=== PATIENT | female | born 1990 | race Caucasian/White ===

== ENCOUNTER 2016-11-11 12:28 | Emergency (ER) | payer MEDICAID ==
[~2016-11-11] VITALS: Wt 71.0 kg
[2016-11-11] MEDS ORDERED: SOD CHLORIDE 0.9% 1,000 ML IV STA (15:31)
[2016-11-11 15:57] LABS: URINE BLOOD (Dip) POC Negative (NEGATIVE)
[2016-11-11] MEDS ORDERED: METOCLOPRAMIDE 10 MG INJ IV ONE (16:00)
[2016-11-11 16:05] LABS: ADD SCAN DIFF NO
[2016-11-11 16:08] LABS: BASOPHILS % 0.2 % (0.0-2.0); EOSINOPHILS # 0.1 10^3/ul (0.0-0.5); EOSINOPHILS % 0.7 % (0.0-7.0); HEMATOCRIT 35.9 % (37.0-47.0); HEMOGLOBIN 12.2 g/dl (12.0-16.0); LYMPHOCYTES # 1.7 10^3/ul (0.8-2.9); LYMPHOCYTES % 17.4 % (15.0-51.0); MEAN CORPUSCULAR HEMOGLOBIN 30.3 pg (29.0-33.0); MEAN CORPUSCULAR VOLUME 89.3 fl (82.0-101.0); MEAN PLATELET VOLUME 10.8 fl (7.4-10.4); MONOCYTE # 0.4 10^3/ul (0.3-0.9); MONOCYTES % 3.5 % (0.0-11.0); NEUTROPHIL # 7.7 10^3/ul (1.6-7.5); NEUTROPHILS % 77.8 % (39.0-77.0); PLATELET COUNT 227 10^3/UL (140-415); RED BLOOD COUNT 4.02 10^6/ul (4.20-5.40); RED CELL DISTRIBUTION WIDTH 12.8 % (11.5-14.5); WHITE BLOOD COUNT 9.9 10^3/ul (4.8-10.8)
[2016-11-11 16:25] LABS: POTASSIUM 3.7 mmol/L (3.5-5.1)
[2016-11-11 16:27] LABS: ALBUMIN/GLOBULIN RATIO 1.25; BILIRUBIN,INDIRECT 0.1 mg/dl (0-1.1); BILIRUBIN,TOTAL 0.1 mg/dl (0.2-1.3); CREATININE 0.5 mg/dl (0.44-1.00); TOTAL PROTEIN 7.2 g/dl (6.1-8.1)
--- NOTE | 2016-11-11 16:27 | RADRPT ---
PROCEDURE: US OB. CLINICAL INDICATION: Size and dates , dizziness TECHNIQUE: Multiple sonographic images of the pelvis and gravid uterus were obtained. The images were reviewed on a PACS workstation. COMPARISON: No prior studies are available for comparison. FINDINGS: There is a single viable intrauterine gestation. Cardiac activity is present with 158 beats per min momo. There is a breech presentation. The placenta is posterior. There is no evidence for an abruption or placenta previa. There is a normal amount of amniotic fluid with a MVP = 4.2 cm. Measurements were made in order to determine age. The results are as follows: BPD =2.8 cm HC =9.8 cm AC =8.8 cm FL =1.8 cm Estimated gestational age of approximately 15 weeks and 0 days based on ultrasound measurements. Clinical age: 10 weeks and 3 days. The estimated date of delivery is 05/05/17, based on ultrasound measurements. The EFW = 115 g, >97%, based on LMP age. RPTAT: AA IMPRESSION: Single viable intrauterine gestation of approximately 15 weeks and 0 days based on ultrasound measu rements. .Vik Moran MD, MD Date Time Electronically viewed and signed by .Vik Moran MD, on 11/11/2016 16:27 .S/
[2016-11-11 16:28] LABS: CALCIUM 8.9 mg/dl (8.4-10.2)
--- NOTE | 2016-11-11 16:39 | ERD ---
ER Documentation Chief Complaint Date/Time DATE: 11/11/16 TIME: 16:34 Chief Complaint DIZZINESS SINCE THIS MORNING. NO TRAUMA. NO VAB BLEED OR AP. 14 WKS PREG HPI Patient is a 26-year-old female G1, P0 who presents to the emergency department with "feeling dizzy and faint" since this morning. Patient states that her symptoms started while she was at work standing up. Patient is a dental automobile mechanic assistant. Patient denies any room spinning sensation, however she feels like she was "going to pass out" earlier today. Patient states that she was diaphoretic for a "few seconds." Patient denies any vomiting however she does report some nausea. Patient denies any fever, chills, abdominal pain, pain with urination, vaginal bleeding or excessive vaginal discharge. Patient denies any chest pain or shortness of breath. Patient denies any falls or syncope. Patient denies any loss of consciousness. Patient states that she is taking vitamins. Patient states she has seen an POLICE COMMANDING OFFICER and reports thus far a normal . ROS All systems reviewed and are negative except as per history of present illness. Medications Home Meds Active Scripts Metoclopramide* (Reglan*) 10 Mg Tablet, 10 MG PO Q6 Y for NAUSEA AND/OR VOMITING , #10 TAB Prov:OSVALDO DUEÑAS PA-C 11/11/16 Allergies Allergies: Coded Allergies: No Known Allergy (Unverified , 11/11/16) PMhx/Soc Medical and Surgical Hx: pt denies Medical Hx, pt denies Surgical Hx Physical Exam Vitals Vital Signs Date Time Temp Pulse Resp B/P Pulse Ox O2 Delivery O2 Flow Rate FiO2 11/11/16 17:00 98.3 78 20 94/58 98 Room Air 11/11/16 12:32 97.9 87 19 132/67 99 Physical Exam GENERAL: Well-developed, well-nourished female. Appears in no acute distress. Speaking in full sentences. HEAD: Normocephalic, atraumatic. No deformities or ecchymosis. EYE: Pupils equal, round, and reactive to light. EOMs intact. No conjunctival erythema. No eye discharge. ENT: External ear without any masses or tenderness. Auditory canals clear bilaterally. TM visualized bilaterally, non-erythematous, non-bulging. Nasal mucosa pink with no discharge. Oropharynx is pink without any tonsillar erythema or exudates. No uvula deviation. No kissing tonsils. NECK: Supple. No meningismus. Normal ROM of the neck. LUNG: Clear to auscultation bilaterally. No rhonchi, wheezing, rales or coarse breath sounds. HEART: Regular rate and rhythm. No murmurs, rubs or gallops. BACK: No midline tenderness. EXTREMITIES: Equal pulses bilaterally. No peripheral clubbing, cyanosis or edema. No unilateral leg swelling. NEUROLOGIC: Alert and oriented x3, cooperative. Mood and affect appropriate to situation. Cranial nerves II through XII are grossly intact. Normal speech. Motor exam: 5/5 strength in upper and lower extremities. Sensory exam: Sensation intact to light touch on all four extremities. Steady gait. No pronator drift. SKIN: Normal color. Warm and dry. No rashes or lesions. Non-diaphoretic. Result Diagram: 11/11/16 1547 11/11/16 1547 Results 24 hrs Laboratory Tests Test 11/11/16 15:47 11/11/16 15:55 Alanine Aminotransferase (ALT/SGPT) 38IU/L Albumin 4.0g/dl Albumin/Globulin Ratio 1.25 Alkaline Phosphatase 66IU/L Anion Gap 17 Aspartate Amino Transf (AST/SGOT) 30IU/L Basophils # 0.010^3/ul Basophils % 0.2% Blood Urea Nitrogen 6mg/dl Calcium Level 8.9mg/dl Carbon Dioxide Level 24mmol/L Chloride Level 103mmol/L Creatinine 0.50mg/dl Direct Bilirubin 0.00mg/dl Eosinophils # 0.110^3/ul Eosinophils % 0.7% Globulin 3.20g/dl Glucose Level 88mg/dl Hematocrit 35.9% Hemoglobin 12.2g/dl Indirect Bilirubin 0.1mg/dl Lipase 35U/L Lymphocytes # 1.710^3/ul Lymphocytes % 17.4% Mean Corpuscular Hemoglobin 30.3pg Mean Corpuscular Hemoglobin Concent 34.0g/dl Mean Corpuscular Volume 89.3fl Mean Platelet Volume 10.8fl Monocytes # 0.410^3/ul Monocytes % 3.5% Neutrophils # 7.710^3/ul Neutrophils % 77.8% Nucleated Red Blood Cells # 0.010^3/ul Nucleated Red Blood Cells % 0.0/100WBC Platelet Count 83692^3/UL Potassium Level 3.7mmol/L Red Blood Count 4.0210^6/ul Red Cell Distribution Width 12.8% Sodium Level 140mmol/L Total Bilirubin 0.1mg/dl Total Protein 7.2g/dl White Blood Count 9.910^3/ul Bedside Urine Blood Negative Bedside Urine Glucose (UA) Negative Bedside Urine Ketones (LAB) Negative Bedside Urine Leukocyte Esterase (L Negative Bedside Urine Nitrite (LAB) Negative Bedside Urine Protein (LAB) Negative Bedside Urine pH (LAB) 5.5 Current Medications Medications (Trade) Dose Ordered Sig/Mattie Route PRN Reason Start Time Stop Time Status Last Admin Dose Admin Sodium Chloride (NS) 1,000 ml @ 1,000 mls/hr Q1H STAT IV 11/11/16 15:31 11/11/16 16:30 DC 11/11/16 15:57 Metoclopramide HCl (Reglan) 10 mg ONCE ONCE IV 11/11/16 16:00 11/11/16 16:01 DC 11/11/16 15:57 Procedures/MDM ED COURSE: The patient was stable throughout ED course. I kept the patient and/or family informed of laboratory and diagnostic imaging results throughout the ED course. EKG: Read by Dr. Gonzalez, attending physician. EKG shows normal sinus rhythm at a rate of 73 bpm. No arrhythmias, acute ST elevations or T wave changes were noted. DIAGNOSTIC IMAGING: Read by radiologist. DIAGNOSTIC IMAGING REPORT Patient: JASSI CROSS : 1990 Age: 26 Sex: F MR #: [id number] DOS: 11/11/16 1534 Ordering MD: OSVALDO DUEÑAS PA-C Location: E Room/Bed: PROCEDURE: US OB. CLINICAL INDICATION: Size and dates , dizziness TECHNIQUE: Multiple sonographic images of the pelvis and gravid uterus were obtained. The images were reviewed on a PACS workstation. COMPARISON: No prior studies are available for comparison. FINDINGS: There is a single viable intrauterine gestation. Cardiac activity is present with 158 beats per minute. There is a breech presentation. The placenta is posterior. There is no evidence for an abruption or placenta previa. There is a normal amount of amniotic fluid with a MVP = 4.2 cm. Measurements were made in order to determine age. The results are as follows: BPD = 2.8 cm HC = 9.8 cm AC = 8.8 cm FL = 1.8 cm Estimated gestational age of approximately 15 weeks and 0 days based on ultrasound measurements. Clinical age: 10 weeks and 3 days. The estimated date of delivery is 05/05/17, based on ultrasound measurements. The EFW = 115 g, >97%, based on LMP age. RPTAT: AA IMPRESSION: Single viable intrauterine gestation of approximately 15 weeks and 0 days based on ultrasound measurements. .Vik Moran MD, MD Date Time Electronically viewed and signed by .Vik Moran MD, MD on 11/11/2016 16: 27 .S/ PROCEDURES: None. MEDICATIONS GIVEN: IV fluids, Reglan Patient tolerated medication well with no adverse reactions. Patient reported improvement in symptoms. MEDICAL DECISION MAKING: Patient is a 26-year-old female, , approximately 14 weeks , who presents emergency department with feeling dizzy and faint. Patient denies any chest pain, shortness of breath or LOC. Vital signs were reviewed. Patient is afebrile. Patient was not hypoxic. Patient was hemodynamically stable. CBC showed no evidence of systemic infection or severe anemia. CMP showed no evidence of electrolyte abnormalities, severe acidosis, alkalosis, renal failure , or liver disease. Lipase showed no evidence of acute pancreatitis. UA showed no evidence of acute infection or hematuria. EKG was within normal limits. Pelvic US showed Single viable intrauterine gestation of approximately 15 weeks and 0 days based on ultrasound measurements. Upon reexamination, patient reported improvement in symptoms after receiving IV fluids and Reglan. At this time, patient's presentation is most consistent with feeling faint and weakness. Patient's symptoms may be associated with changes. Low suspicion for systemic infection. Low suspicion for UTI or pyelonephritis. Low suspicion for CVA or TIA given that patient was speaking in full sentences, had no slurred speech, no arm weakness or unilateral weakness. Low suspicion for severe dehydration or electrolyte imbalances. Low suspicion for anemia given normal Hgb and HCT. Low suspicion for ACS, arrhythmia or pericarditis. Low suspicion for PE given that patient denied any chest pain, shortness of breath, was not tachycardic or hypoxia. Low suspicion for demise or spontaneous . PRESCRIPTIONS: Reglan DISCHARGE: At this time, patient is stable for discharge and outpatient management. I have instructed the patient to follow-up with his/her primary care physician/OBGYN in 1-2 days. I have discussed with the patient the possibility of needing to see a specialist for further workup and imaging studies if symptoms persist. I have instructed the patient to promptly return to the ER for any new or worsening symptoms including increased pain, fever, nausea, vomiting, weakness or LOC. The patient and/or family expressed understanding of and agreement with this plan. All questions were answered. Home care instructions were provided. Departure Diagnosis: Primary Impression: Weeks of gestation: unspecified Qualified Code: Z33.1 - , unspecified gestational age Additional Impression: Feeling faint Condition: Stable Patient Instructions: Dizziness, Unk Cause Referrals: [facility] YOU HAVE RECEIVED A MEDICAL SCREENING EXAM AND THE RESULTS INDICATE THAT YOU DO NOT HAVE A CONDITION THAT REQUIRES URGENT TREATMENT IN THE EMERGENCY DEPARTMENT. FURTHER EVALUATION AND TREATMENT OF YOUR CONDITION CAN WAIT UNTIL YOU ARE SEEN IN YOUR DOCTORS OFFICE WITHIN THE NEXT 1-2 DAYS. IT IS YOUR RESPONSIBILITY TO MAKE AN APPOINTMENT FOR FOLOW-UP CARE. IF YOU HAVE A PRIMARY DOCTOR --you should call your primary doctor and schedule an appointment IF YOU DO NOT HAVE A PRIMARY DOCTOR YOU CAN CALL OUR PHYSICIAN REFERRAL HOTLINE AT IF YOU CAN NOT AFFORD TO SEE A PHYSICIAN YOU CAN CHOSE FROM THE FOLLOWING [facility] [address] [facility] [address] [facility] [facility] [address] [facility] [address] [facility] [address]. [facility]. [address] [facility]. [facility] YOU HAVE RECEIVED A MEDICAL SCREENING EXAM AND THE RESULTS INDICATE THAT YOU DO NOT HAVE A CONDITION THAT REQUIRES URGENT TREATMENT IN THE EMERGENCY DEPARTMENT. FURTHER EVALUATION AND TREATMENT OF YOUR CONDITION CAN WAIT UNTIL YOU ARE SEEN IN YOUR DOCTORS OFFICE WITHIN THE NEXT 1-2 DAYS. IT IS YOUR RESPONSIBILITY TO MAKE AN APPOINTMENT FOR FOLOW-UP CARE. IF YOU HAVE A PRIMARY DOCTOR --you should call your primary doctor and schedule and appointment IF YOU DO NOT HAVE A PRIMARY DOCTOR YOU CAN CALL OUR PHYSICIAN REFERRAL HOTLINE AT . IF YOU CAN NOT AFFORD TO SEE A PHYSICIAN YOU CAN CHOSE FROM THE FOLLOWING [facility] INSTITUTIONS: [facility] [address] [place] [address] [facility] [address] [place] [address] [facility] [address] [place] [address] Additional Instructions: Call your primary care doctor/OBGYN TOMORROW for an appointment during the next 1-2 days.See the doctor sooner or return here if your condition worsens before your appointment time. OSVALDO DUEÑAS PA-C Nov 11, 2016 16:39
[2016-11-11] MEDS ORDERED: METO10TA92 PO (16:54)
[2016-11-11 17:00] VITALS: BP 94/58; PULSE 78; RESP 20; TEMP 98.3
== END 2016-11-11 17:07 | disposition home or self-care (01) ==
LOC: FTE 12:28
DX: O99.89 Other specified diseases and conditions complicating pregnancy, childbirth and the puerperium (principal); R42 Dizziness and giddiness; Z3A.15 15 weeks gestation of pregnancy
CPT/HCPCS: 36415; 76805; 80053; 81003; 83690; 85025; 93005; 96374; J2765; J7030; Z7502

== ENCOUNTER 2017-05-06 17:04 | Inpatient (IN) | payer OTHER ==
[~2017-05-06] VITALS: Ht 167.6 cm; Wt 87.3 kg
[~2017-05-06 17:04] MED LIST: METO10TA92 PO
[2017-05-06 17:39] VITALS: Ht 167.6 cm; Wt 87.3 kg
[2017-05-06 17:40] VITALS: BP 110/74; PULSE 96; RESP 18
[2017-05-06] MEDS ORDERED: IBUPROFEN 600 MG TAB PO PRN (18:00)
[2017-05-06] MEDS ORDERED: LACTATED RINGER'S 1,000 ML IV PRN (18:00)
[2017-05-06] MEDS ORDERED: LIDOCAINE 1% (MPF) 30 ML INJ INJ PRN (18:00)
[2017-05-06] MEDS ORDERED: CARBOPROST 250 MCG INJ IM PRN (18:00)
[2017-05-06] MEDS ORDERED: OXYTOCIN 30 UNITS/LR 500 ML IV SCH ×2 (18:00)
[2017-05-06] MEDS ORDERED: MISOPROSTOL 200 MCG TAB PR PRN (18:00)
[2017-05-06] MEDS ORDERED: METHYLERGONOVINE 0.2 MG INJ IM PRN (18:00)
[2017-05-06] MEDS ORDERED: OXYTOCIN 30 UNITS/LR 500 ML IV PRN (18:00)
[2017-05-06 18:01] LABS: BASOPHILS % 0.2 % (0.0-2.0); EOSINOPHILS # 0.1 10^3/ul (0.0-0.5); HEMATOCRIT 35.6 % (37.0-47.0); HEMOGLOBIN 11.9 g/dl (12.0-16.0); LYMPHOCYTES # 1.7 10^3/ul (0.8-2.9); MEAN CORPUSCULAR HEMOGLOBIN 29.7 pg (29.0-33.0); MEAN CORPUSCULAR HGB CONC 33.4 g/dl (32.0-37.0); MEAN CORPUSCULAR VOLUME 88.8 fl (82.0-101.0); MEAN PLATELET VOLUME 11.1 fl (7.4-10.4); MONOCYTE # 0.4 10^3/ul (0.3-0.9); MONOCYTES % 4.2 % (0.0-11.0); NEUTROPHILS % 75.2 % (39.0-77.0); PLATELET COUNT 249 10^3/UL (140-415); RED BLOOD COUNT 4.01 10^6/ul (4.20-5.40); RED CELL DISTRIBUTION WIDTH 13.1 % (11.5-14.5)
[2017-05-06] MEDS: LACTATED RINGER'S 1,000 ML IV SCH (18:03)
[2017-05-06 18:18] LABS: INR 0.81; PROTIME 11.2 Sec (12.2-14.2); PT RATIO 0.9
[2017-05-06 18:19] LABS: PARTIAL THROMBOPLASTIN TIME 24.1 Sec (25.0-35.0)
--- NOTE | 2017-05-06 19:23 | RADRPT ---
PROCEDURE: US OB. CLINICAL INDICATION: Pain. TECHNIQUE: Multiple sonographic images of the pelvis were obtained. Transabdominal imaging only w as performed. The images were reviewed on a PACS workstation. COMPARISON: 11/11/2016. FINDINGS: Single live intrauterine is identified. Cardiac activity is present with 150 beats per mi nute. There is a vertex presentation. Measurements: BPD = 39 weeks 3 days HC = 39 weeks 3 days. AC = 39 weeks 3 days. FL = 39 weeks 3 days. Estimated gestational age of approximately 39 weeks 3 days. The EFW = 3776 g which is at the 72nd percentile. The placenta is posterior. IMPRESSION: Single live intrauterine gestation of approximately 39 weeks 3 days. RPTAT: HMVK .Jorge Jennings MD, MD Date Time Electronically viewed and signed by .Jorge Jennings MD, MD on 05/06/2017 19:23 .K/
[2017-05-06] MEDS: OXYTOCIN 30 UNITS/LR 500 ML IV SCH (21:43)
[2017-05-07] MEDS: LACTATED RINGER'S 1,000 ML IV SCH ×3 (00:47→17:09)
[2017-05-07] MEDS ORDERED: FENTAnyl 2MCG/ML-ROPIV 0.2% 100 ML ONE (08:29)
[2017-05-07] MEDS ORDERED: FENTAnyl 2MCG/ML-ROPIV 0.2% 100 ML BAG EPI SCH (09:00)
[2017-05-07] MEDS ORDERED: HYDROmorphONE 1 MG/ML SYG IV PRN ×2 (09:00)
[2017-05-07] MEDS ORDERED: ONDANSETRON 4 MG INJ IV PRN (09:00)
[2017-05-07] MEDS ORDERED: DIPHENHYDRAMINE 50 MG INJ IV PRN (09:00)
[2017-05-07] MEDS ORDERED: NALOXONE (0.4 MG/ML) INJ IV PRN (09:00)
[2017-05-07] MEDS ORDERED: KETOROLAC 30 MG INJ IV PRN (09:00)
[2017-05-07] MEDS ORDERED: AMPICILLIN 2 GM/NS (PMX) 100 ML IV ONE (18:00)
[2017-05-07 19:55] LABS: CANNABINOIDS Negative (NEGATIVE)
[2017-05-07 20:03] LABS: BARBITURATES Negative (NEGATIVE); BENZODIAZEPINES Negative (NEGATIVE); COCAINE Negative (NEGATIVE); OPIATES Negative (NEGATIVE)
[2017-05-07] MEDS: OXYTOCIN 30 UNITS/LR 500 ML IV SCH (20:08)
[2017-05-07] MEDS ORDERED: AMPICILLIN 1 GM/NS (PMX) 50 ML IV SCH (22:00)
[2017-05-08] VITALS (7 sets, daily range): BP systolic 103–110; BP diastolic 57–70; PULSE 78–94; RESP 16–20
--- NOTE | 2017-05-08 01:27 | HP ---
Date/Time of Note Date/Time of Note DATE: 05/08/17 TIME: 01:26 OB - History Hx of Present Free Text/Dictation 39+ : 1 Para: 0 Care: Good Care Ultrasounds: No ultrasounds Obstetrical Complications: None Medical Complications: None Past Family/Social History * Past Medical, Surgical, Family and Obstetric Histories reviewed from chart. OB Admission Exam Vital Signs Vital Signs Vital Signs Date Time Temp Pulse Resp B/P Pulse Ox O2 Delivery O2 Flow Rate FiO2 05/06/17 17:40 97.6 96 18 110/74 Room Air Physical Exam Abdomen: WNL Cervical Dilatation: 2cm Effacement: 75% Station: -1 Membranes: Intact Heart Rate: 140's Accelerations: Accelerations Present Decelerations: No Decelerations Varibility: Moderate Contractions on Admission: 6-10 Minutes Apart Last 72 hours Lab Results CBC & BMP 05/06/17 17:25 OB Assessment/Plan Reason for admission: observation Plan: Expectant Management Induction Method: per Pitocin Protocol PAOLA MENEZES M.D. May 08, 2017 01:27
--- NOTE | 2017-05-08 01:28 | LDN ---
Date/Time of Note Date/Time of Note DATE: 05/08/17 TIME: 01:27 Delivery Summary Weeks of Gestation 39 Placenta Delivered: Spontaneously Meconium: none Episiotomy: No Anesthesia type: Epidural Estimated blood loss: 200 Sponge & Needle done & correct: Yes All needle counts correct: Yes Any foreign bodies felt in the: No Problems: Delivery Information Apgars 1 Minute: 8 5 Minute: 9 Suctioning Nose & mouth suctioned at kike: Yes Delee suction performed: Yes Umbilical Cord Umbilical cord with: 3 Vessels Cord presentations: no nuchal cord Mother & Baby Disposition Disposition Mom & Baby to Maternity; Good: Yes Baby to NICU: No PAOLA MENEZES M.D. May 08, 2017 01:28
[2017-05-08] MEDS ORDERED: WITCH HAZEL/GLYCERIN PAD PR PRN (05:00)
[2017-05-08] MEDS ORDERED: OXYCODONE/ASPIRIN (4.88/325) TAB PO PRN (05:00)
[2017-05-08] MEDS ORDERED: CARBOPROST 250 MCG INJ IM PRN (05:00)
[2017-05-08] MEDS ORDERED: METHYLERGONOVINE 0.2 MG INJ IM PRN (05:00)
[2017-05-08] MEDS ORDERED: MISOPROSTOL 200 MCG TAB PR PRN (05:00)
[2017-05-08] MEDS ORDERED: ZOLPIDEM 5 MG TAB PO PRN (05:00)
[2017-05-08] MEDS ORDERED: SENNA/DOCUSATE NA (8.6MG/50MG) TAB PO PRN (05:00)
[2017-05-08] MEDS ORDERED: OXYTOCIN 30 UNITS/LR 500 ML IV PRN (05:00)
[2017-05-08] MEDS: LACTATED RINGER'S 1,000 ML IV* SCH ×2 (06:41→12:51)
[2017-05-08] MEDS: SENNA/DOCUSATE NA (8.6MG/50MG) TAB PO SCH ×2 (08:53→22:11)
[2017-05-08 09:13] LABS: BASOPHILS % 0.1 % (0.0-2.0); EOSINOPHILS % 0.1 % (0.0-7.0); HEMATOCRIT 33.5 % (37.0-47.0); HEMOGLOBIN 11.1 g/dl (12.0-16.0); LYMPHOCYTES # 1.5 10^3/ul (0.8-2.9); LYMPHOCYTES % 8.2 % (15.0-51.0); MEAN CORPUSCULAR HEMOGLOBIN 29.1 pg (29.0-33.0); MEAN CORPUSCULAR HGB CONC 33.1 g/dl (32.0-37.0); MEAN CORPUSCULAR VOLUME 87.9 fl (82.0-101.0); MEAN PLATELET VOLUME 11.1 fl (7.4-10.4); MONOCYTE # 0.8 10^3/ul (0.3-0.9); MONOCYTES % 4.6 % (0.0-11.0); NEUTROPHILS % 86.6 % (39.0-77.0); PLATELET COUNT 219 10^3/UL (140-415); RED BLOOD COUNT 3.81 10^6/ul (4.20-5.40); RED CELL DISTRIBUTION WIDTH 13.2 % (11.5-14.5); WHITE BLOOD COUNT 18.3 10^3/ul (4.8-10.8)
[2017-05-08] MEDS ORDERED: LANOLIN 7 GM TUBE TOP PRN (13:00)
[2017-05-08] MEDS: IBUPROFEN 600 MG TAB PO SCH ×3 (13:15→23:56)
[2017-05-09 04:21] VITALS: BP 99/54; PULSE 77; RESP 20
[2017-05-09] MEDS: IBUPROFEN 600 MG TAB PO SCH ×3 (05:26→17:24)
[2017-05-09 08:00] VITALS: BP 100/66; PULSE 78; RESP 18
[2017-05-09] MEDS: SENNA/DOCUSATE NA (8.6MG/50MG) TAB PO SCH ×2 (09:13→21:34)
--- NOTE | 2017-05-09 11:23 | QN ---
Documentation Comment Late Note 05/09/17 PPD# 1 i stable afebrile tolerates diet No VB +BM +voids VS stable Gen NAD Abd soft NT ND Genitalia No blood at perinium ---->Discharge Home Tomorrow ---->ambulation PAOLA MENEZES M.D. May 09, 2017 11:23
--- NOTE | 2017-05-09 11:24 | DS ---
Date/Time of Note Date/Time of Note DATE: 05/09/17 TIME: 11:23 Discharge Summary Admission/Discharge Info Admit Date/Time May 06, 2017 at 17:04 Discharge Date/Time may Discharge Diagnosis postpaartum Patient Condition: Good Procedures vaginal delivery Hospital Course uneventful Home Meds Active Scripts Metoclopramide* (Reglan*) 10 Mg Tablet, 10 MG PO Q6 Y for NAUSEA AND/OR VOMITING , #10 TAB Prov:OSVALDO DUEÑAS PA-C 11/11/16 Primary Care Provider Care Physician PAOLA Linda M.D. May 09, 2017 11:24
[2017-05-09 16:00] VITALS: BP 107/68; PULSE 69; RESP 16
[2017-05-09 20:00] VITALS: BP 115/76; PULSE 83; RESP 20
[2017-05-10] MEDS: IBUPROFEN 600 MG TAB PO SCH ×3 (00:11→11:24)
[2017-05-10 04:00] VITALS: BP 128/62; PULSE 74; RESP 18
[2017-05-10 08:00] VITALS: BP 117/67; PULSE 68; RESP 20
[2017-05-10] MEDS ORDERED: DIPHTH/TET/ACEL PERTUSS (ADULT) 0.5 ML VIAL IM* ONE (09:00)
[2017-05-10] MEDS: SENNA/DOCUSATE NA (8.6MG/50MG) TAB PO SCH (09:03)
== END 2017-05-10 15:13 | disposition home or self-care (01) | DRG 775 ==
LOC: L-D 17:04 → PP1 05-08 03:26
PROVIDERS: ADMIT Obstetrics & Gynecology; ATTEND Obstetrics & Gynecology
PROC: 10E0XZZ Delivery of Products of Conception, External Approach (ICD-10-PCS; principal; 2017-05-08)
PROC: 3E033VJ Introduction of Other Hormone into Peripheral Vein, Percutaneous Approach (ICD-10-PCS; 2017-05-08)
DX: O80 Encounter for full-term uncomplicated delivery (principal); Z37.0 Single live birth; Z3A.39 39 weeks gestation of pregnancy
CPT/HCPCS: 62319; 76815; 80307; 85025; 85610; 85730; 86592; 86900; 86901; 90715; J0290; J2405; J2590; J3010; J7120

== ENCOUNTER 2017-05-19 17:10 | Emergency (ER) | payer OTHER ==
[~2017-05-19] VITALS: Wt 79.5 kg
--- NOTE | 2017-05-19 17:48 | ERD ---
ER Documentation Chief Complaint Date/Time DATE: 05/19/17 TIME: 17:48 Chief Complaint DELMA BREAST PAIN/ITCHY, HPI 26-year-old female previously healthy presenting with itching around bilateral breasts after she breast-feeds. She denies any associated rash or pain. Otherwise when not breast-feeding, she does not have any pruritus. She denies any other symptoms. ROS All systems reviewed and are negative except as per history of present illness. Medications Home Meds No Active Prescriptions or Reported Meds Allergies Allergies: Coded Allergies: No Known Allergy (Unverified , 11/11/16) PMhx/Soc Medical and Surgical Hx: pt denies Medical Hx, pt denies Surgical Hx Hx Alcohol Use: No Hx Substance Use: No Smoking Status: Never smoker FmHx Family History: No diabetes Physical Exam Vitals Vital Signs Date Time Temp Pulse Resp B/P Pulse Ox O2 Delivery O2 Flow Rate FiO2 05/19/17 17:17 99.1 69 18 150/78 99 Physical Exam Const: Well-appearing, no apparent distress Head: Atraumatic Eyes: Normal Conjunctiva ENT: Normal External Ears, Nose and Mouth. Neck: Full range of motion..~ No meningismus. Resp: Clear to auscultation bilaterally Breast exam: deferred by patient Cardio: Regular rate and rhythm, no murmurs Abd: Soft, non tender, non distended. Normal bowel sounds Skin: No petechiae or rashes Procedures/MDM Patient is presenting with some intermittent pruritus around both her breasts associated with breast-feeding. Currently she is asymptomatic without any associated rash or pain. She is hemodynamically stable. Her baby does not have any evidence of thrush. I believe the patient does not need treatment at this time. Breast care was discussed. Return precautions were also given. Departure Diagnosis: Primary Impression: Pruritus Additional Impression: support offered Condition: Stable LEEANNE LITTLEJOHN MD May 19, 2017 17:48
== END 2017-05-19 17:55 | disposition home or self-care (01) ==
LOC: E/R 17:10
DX: L29.9 Pruritus, unspecified (principal)
CPT/HCPCS: 99282

== ENCOUNTER 2018-07-27 05:49 | Emergency (ER) | END 2018-07-27 07:59 | disposition home or self-care (01) ==

== ENCOUNTER 2018-08-16 23:31 | Emergency (ER) | END 2018-08-17 03:12 | disposition home or self-care (01) ==

== ENCOUNTER 2018-12-21 01:47 | Emergency (ER) | payer OTHER ==
[~2018-12-21] VITALS: Ht 165.1 cm; Wt 69.2 kg
[~2018-12-21 01:47] MED LIST changes: +ACET500C5 PO; +FAMO-96 PO; -METO10TA92 PO; +ONDA4TAB14 PO
[2018-12-21 01:51] VITALS: Ht 165.1 cm; Wt 69.2 kg
[2018-12-21] MEDS ORDERED: KETOROLAC 30 MG INJ IM STA (03:05)
[2018-12-21] MEDS ORDERED: LIDOCAINE/MYLANTA 40 ML BTL PO ONE (03:30)
[2018-12-21] MEDS ORDERED: ONDA4TAB14 PO (04:53)
[2018-12-21] MEDS ORDERED: ACET-141 PO (04:53)
[2018-12-21] MEDS ORDERED: IBUP-1561 PO (04:53)
--- NOTE | 2018-12-21 04:55 | ERD ---
ER Documentation Chief Complaint Chief Complaint abdominal pain x 3 hours. hx of gallstones ROS All systems reviewed and are negative except as per history of present illness. Medications Home Meds Active Scripts Ondansetron (Ondansetron Odt) 4 Mg Tab.rapdis, 4 MG PO Q6H PRN for NAUSEA AND/OR VOMITING, #15 TAB Prov:FANNIE HUBBARD DO 12/21/18 Acetaminophen* (Acetaminophen*) 500 MG Extra Strength Tablet, 500 MG PO Q4H PRN for PAIN AND OR ELEVATED TEMP, #30 TAB Prov:FANNIE HUBBARD DO 12/21/18 Ibuprofen* (Motrin*) 400 Mg Tab, 400 MG PO Q6H PRN for PAIN AND OR ELEVATED TEMP, #30 TAB Prov:FANNIE HUBBARD DO 12/21/18 Acetaminophen* (Tylophen*) 500 Mg Capsule, 1 CAP PO Q6H PRN for PAIN AND OR ELEVATED TEMP, #20 CAP Prov:PITA PLATA PA-C 08/17/18 Ondansetron (Ondansetron Odt) 4 Mg Tab.rapdis, 4 MG PO Q6H PRN for NAUSEA AND/OR VOMITING, #10 TAB Prov:PITA PLATA PA-C 08/17/18 Famotidine* (Pepcid*) 20 Mg Tablet, 20 MG PO BID for 4 Days, TAB Prov:RACHEL STAPLETON PA-C 07/27/18 Ondansetron (Ondansetron Odt) 4 Mg Tab.rapdis, 4 MG PO Q6H PRN for NAUSEA AND/OR VOMITING, #10 TAB Prov:RACHEL STAPLETON PA-C 07/27/18 Allergies Allergies: Coded Allergies: No Known Allergy (Unverified , 07/27/18) PMhx/Soc Hx Miscellaneous Medical Probl: Yes (gallstones) Hx Alcohol Use: No Hx Substance Use: No Hx Tobacco Use: No Smoking Status: Never smoker Physical Exam Vitals Vital Signs Date Temp Pulse Resp B/P (MAP) Pulse Ox O2 O2 Flow FiO2 Time Delivery Rate 12/21/18 97.4 70 18 129/74 99 01:51 (92) Physical Exam Const: No acute distress Head: Atraumatic Eyes: Normal Conjunctiva ENT: Normal External Ears, Nose and Mouth. Neck: Full range of motion. No meningismus. Resp: Clear to auscultation bilaterally Cardio: Regular rate and rhythm, no murmurs Abd: Soft, non tender, non distended. Normal bowel sounds Skin: No petechiae or rashes Back: No midline or flank tenderness Ext: No cyanosis, or edema Neur: Awake and alert Psych: Normal Mood and Affect Result Diagram: 12/21/18 0323 12/21/18 0323 Results 24 hrs Laboratory Tests Test 12/21/18 03:21 12/21/18 03:23 POC Beta HCG, Qualitative NEGATIVE White Blood Count 8.4 10^3/ul Red Blood Count 4.05 10^6/ul Hemoglobin 11.8 g/dl Hematocrit 36.0 % Mean Corpuscular Volume 88.9 fl Mean Corpuscular Hemoglobin 29.1 pg Mean Corpuscular Hemoglobin Concent 32.8 g/dl Red Cell Distribution Width 12.0 % Platelet Count 217 10^3/UL Mean Platelet Volume 11.6 fl Immature Granulocytes % 0.400 % Neutrophils % 73.8 % Lymphocytes % 19.9 % Monocytes % 4.2 % Eosinophils % 1.2 % Basophils % 0.5 % Nucleated Red Blood Cells % 0.0 /100WBC Immature Granulocytes # 0.030 10^3/ul Neutrophils # 6.2 10^3/ul Lymphocytes # 1.7 10^3/ul Monocytes # 0.4 10^3/ul Eosinophils # 0.1 10^3/ul Basophils # 0.0 10^3/ul Nucleated Red Blood Cells # 0.0 10^3/ul Urine Color YELLOW Urine Clarity SLIGHTLY CLOUDY Urine pH 5.0 Urine Specific Helper 1.029 Urine Ketones 1+ mg/dL Urine Nitrite NEGATIVE mg/dL Urine Bilirubin NEGATIVE mg/dL Urine Urobilinogen 1+ mg/dL Urine Leukocyte Esterase NEGATIVE Abeba/ul Urine Microscopic RBC 0 /HPF Urine Microscopic WBC 2 /HPF Urine Squamous Epithelial Cells FEW /HPF Urine Mucus MANY /HPF Urine Hemoglobin 1+ mg/dL Urine Glucose NEGATIVE mg/dL Urine Total Protein NEGATIVE mg/dl Sodium Level 143 mmol/L Potassium Level 3.4 mmol/L Chloride Level 107 mmol/L Carbon Dioxide Level 27 mmol/L Anion Gap 9 Blood Urea Nitrogen 12 mg/dl Creatinine 0.64 mg/dl Est Glomerular Filtrat Rate mL/min > 60 mL/min Glucose Level 100 mg/dl Calcium Level 9.3 mg/dl Total Bilirubin 0.3 mg/dl Direct Bilirubin 0.00 mg/dl Indirect Bilirubin 0.3 mg/dl Aspartate Amino Transf (AST/SGOT) 14 IU/L Alanine Aminotransferase (ALT/SGPT) 11 IU/L Alkaline Phosphatase 49 IU/L Total Protein 7.5 g/dl Albumin 4.4 g/dl Globulin 3.10 g/dl Albumin/Globulin Ratio 1.41 Lipase 36 U/L Current Medications Medications Dose Sig/Mattie Start Time Status Last (Trade) Ordered Route PRN Stop Time Admin Dose Reason Admin Ketorolac 30 mg ONCE STAT 12/21/18 DC 12/21/18 Tromethamine IM 03:05 03:24 (Toradol) 12/21/18 03:07 40 ml ONCE ONCE 12/21/18 DC 12/21/18 Miscellaneous PO 03:30 03:16 Medication 12/21/18 03:31 (Gi Cocktail (2)) Departure Diagnosis: Primary Impression: Abdominal pain Abdominal location: epigastric Qualified Codes: R10.13 - Epigastric pain Additional Impression: Biliary colic Condition: Fair Patient Instructions: Abdominal Pain, Biliary Colic With Gallstone (Confirmed) Referrals: [facility] YOU HAVE RECEIVED A MEDICAL SCREENING EXAM AND THE RESULTS INDICATE THAT YOU DO NOT HAVE A CONDITION THAT REQUIRES URGENT TREATMENT IN THE EMERGENCY DEPARTMENT. FURTHER EVALUATION AND TREATMENT OF YOUR CONDITION CAN WAIT UNTIL YOU ARE SEEN IN YOUR DOCTORS OFFICE WITHIN THE NEXT 1-2 DAYS. IT IS YOUR RESPONSIBILITY TO MAKE AN APPOINTMENT FOR FOLOW-UP CARE. IF YOU HAVE A PRIMARY DOCTOR --you should call your primary doctor and schedule an appointment IF YOU DO NOT HAVE A PRIMARY DOCTOR YOU CAN CALL OUR PHYSICIAN REFERRAL HOTLINE AT IF YOU CAN NOT AFFORD TO SEE A PHYSICIAN YOU CAN CHOSE FROM THE FOLLOWING [facility] [address] [facility]. [facility] [address] [facility] [address] [facility] [facility] [address] [facility]. [facility] [address]. [facility]. [address] Additional Instructions: Call your primary care doctor TOMORROW for an appointment during the next 1-2 days.See the doctor sooner or return here if your condition worsens before your appointment time. FANNIE HUBBARD DO Dec 21, 2018 04:55
[2018-12-21 05:05] VITALS: BP 104/64; PULSE 69; RESP 18
== END 2018-12-21 05:05 | disposition home or self-care (01) ==
LOC: FTE 01:47
DX: K80.20 Calculus of gallbladder without cholecystitis without obstruction (principal)
CPT/HCPCS: 36415; 76705; 80053; 81001; 81025; 83690; 85025; 96372; 99285; J1885

== ENCOUNTER 2018-12-25 19:36 | Emergency (ER) | payer OTHER ==
[~2018-12-25] VITALS: Ht 165.1 cm; Wt 69.0 kg
[~2018-12-25 19:36] MED LIST changes: +ACET-141 PO; +IBUP-1561 PO
[2018-12-25 19:43] VITALS: Ht 165.1 cm; Wt 69.0 kg
[2018-12-25] MEDS ORDERED: SOD CHLORIDE 0.9% 1,000 ML IV STA (20:57)
[2018-12-25] MEDS ORDERED: KETOROLAC 30 MG INJ IV STA (20:57)
[2018-12-25] MEDS ORDERED: ONDANSETRON 4 MG INJ IV STA (20:57)
--- NOTE | 2018-12-25 21:05 | ERD ---
ER Documentation Chief Complaint Chief Complaint Pt c/o "gallstone pain" HPI 28-year-old female with past medical history of gallstones presenting the emergency department complaining of right upper quadrant pain which began today. She states the pain is constant, sharp with radiation to her back. Pain is currently rated 10/10 in severity. Associated symptoms include one episode of nonbilious and nonbloody vomiting today. The patient states she ate a breakfast burrito today with eggs and cheese. She also had multiple episodes of nonbloody diarrhea today. She denies any fevers or other symptoms at this time. ROS All systems reviewed and are negative except as per history of present illness. Medications Home Meds Active Scripts Ondansetron (Ondansetron Odt) 4 Mg Tab.rapdis, 4 MG PO Q6H PRN for NAUSEA AND/OR VOMITING, #10 TAB Prov:HERBERT BRANHAM PA-C 12/25/18 Hydrocodone/Acetaminophen ([place] 5-325 Tablet) 1 Each Tablet, 1 TAB PO Q6H PRN for PAIN, #7 TAB Prov:HERBERT BRANHAM PA-C 12/25/18 Naproxen* (Naprosyn*) 500 Mg Tablet, 500 MG PO BID PRN for PAIN AND/OR INFLAMMATION, #30 TAB Prov:HERBERT BRANHAM PA-C 12/25/18 Ondansetron (Ondansetron Odt) 4 Mg Tab.rapdis, 4 MG PO Q6H PRN for NAUSEA AND/OR VOMITING, #15 TAB Prov:FANNIE HUBBARD DO 12/21/18 Acetaminophen* (Acetaminophen*) 500 MG Extra Strength Tablet, 500 MG PO Q4H PRN for PAIN AND OR ELEVATED TEMP, #30 TAB Prov:FANNIE HUBBARD DO 12/21/18 Ibuprofen* (Motrin*) 400 Mg Tab, 400 MG PO Q6H PRN for PAIN AND OR ELEVATED TEMP, #30 TAB Prov:FANNIE HUBBARD DO 12/21/18 Acetaminophen* (Tylophen*) 500 Mg Capsule, 1 CAP PO Q6H PRN for PAIN AND OR ELEVATED TEMP, #20 CAP Prov:PITA PLATA PA-C 08/17/18 Ondansetron (Ondansetron Odt) 4 Mg Tab.rapdis, 4 MG PO Q6H PRN for NAUSEA AND/OR VOMITING, #10 TAB Prov:PITA PLATA PA-C 08/17/18 Famotidine* (Pepcid*) 20 Mg Tablet, 20 MG PO BID for 4 Days, TAB Prov:RACHEL STAPLETON PA-C 07/27/18 Ondansetron (Ondansetron Odt) 4 Mg Tab.rapdis, 4 MG PO Q6H PRN for NAUSEA AND/OR VOMITING, #10 TAB Prov:RACHEL STAPLETON PA-C 07/27/18 Allergies Allergies: Coded Allergies: No Known Allergy (Unverified , 07/27/18) PMhx/Soc Medical and Surgical Hx: pt denies Medical Hx History of Surgery: No Anesthesia Reaction: No Hx Neurological Disorder: No Hx Respiratory Disorders: No Hx Cardiac Disorders: No Hx Psychiatric Problems: No Hx Miscellaneous Medical Probl: Yes (gallstones) Hx Alcohol Use: No Hx Substance Use: No Hx Tobacco Use: No Smoking Status: Never smoker FmHx Family History: No diabetes Physical Exam Vitals Vital Signs Date Temp Pulse Resp B/P (MAP) Pulse Ox O2 O2 Flow FiO2 Time Delivery Rate 12/25/18 98.3 66 16 116/60 99 Room Air 22:30 (78) 12/25/18 98.3 75 16 125/83 100 19:43 (97) Physical Exam Const: No acute distress Head: Atraumatic Eyes: Normal Conjunctiva ENT: Normal External Ears, Nose and Mouth. Neck: Full range of motion. No meningismus. Resp: Clear to auscultation bilaterally Cardio: Regular rate and rhythm, no murmurs Abd: Soft, tenderness palpation of the right upper quadrant, no true Khoury sign, no rebound tenderness or guarding, no McBurney's point tenderness, non distended. Normal bowel sounds Skin: No petechiae or rashes Back: No midline or flank tenderness Ext: No cyanosis, or edema Neur: Awake and alert Psych: Normal Mood and Affect Result Diagram: 12/25/18211812/25/182118 Results 24 hrs Laboratory Tests Test 12/25/18 21:15 12/25/18 21:19 POC Beta HCG, Qualitative NEGATIVE White Blood Count 11.8 10^3/ul Red Blood Count 4.44 10^6/ul Hemoglobin 13.1 g/dl Hematocrit 40.1 % Mean Corpuscular Volume 90.3 fl Mean Corpuscular Hemoglobin 29.5 pg Mean Corpuscular Hemoglobin Concent 32.7 g/dl Red Cell Distribution Width 12.1 % Platelet Count 248 10^3/UL Mean Platelet Volume 11.4 fl Immature Granulocytes % 0.400 % Neutrophils % 76.4 % Lymphocytes % 17.7 % Monocytes % 4.2 % Eosinophils % 0.9 % Basophils % 0.4 % Nucleated Red Blood Cells % 0.0 /100WBC Immature Granulocytes # 0.050 10^3/ul Neutrophils # 9.0 10^3/ul Lymphocytes # 2.1 10^3/ul Monocytes # 0.5 10^3/ul Eosinophils # 0.1 10^3/ul Basophils # 0.1 10^3/ul Nucleated Red Blood Cells # 0.0 10^3/ul Prothrombin Time 11.6 Sec Prothrombin Time Ratio 0.9 INR International Normalized Ratio 0.84 Activated Partial Thromboplast Time 25.6 Sec Urine Color YELLOW Urine Clarity SLIGHTLY CLOUDY Urine pH 6.0 Urine Specific [place] 1.018 Urine Ketones NEGATIVE mg/dL Urine Nitrite NEGATIVE mg/dL Urine Bilirubin NEGATIVE mg/dL Urine Urobilinogen NEGATIVE mg/dL Urine Leukocyte Esterase NEGATIVE [place]/ul Urine Microscopic RBC 1 /HPF Urine Microscopic WBC 1 /HPF Urine Squamous Epithelial Cells FEW /HPF Urine Amorphous Crystals FEW /HPF Urine Hemoglobin NEGATIVE mg/dL Urine Glucose NEGATIVE mg/dL Urine Total Protein NEGATIVE mg/dl Sodium Level 142 mmol/L Potassium Level 4.1 mmol/L Chloride Level 106 mmol/L Carbon Dioxide Level 26 mmol/L Anion Gap 10 Blood Urea Nitrogen 12 mg/dl Creatinine 0.65 mg/dl Est Glomerular Filtrat Rate mL/min > 60 mL/min Glucose Level 96 mg/dl Calcium Level 9.9 mg/dl Total Bilirubin 0.1 mg/dl Direct Bilirubin 0.00 mg/dl Indirect Bilirubin 0.1 mg/dl Aspartate Amino Transf (AST/SGOT) 11 IU/L Alanine Aminotransferase (ALT/SGPT) 12 IU/L Alkaline Phosphatase 54 IU/L Total Protein 8.5 g/dl Albumin 4.9 g/dl Globulin 3.60 g/dl Albumin/Globulin Ratio 1.36 Lipase 55 U/L Current Medications Medications Dose Sig/Mattie Start Time Status Last (Trade) Ordered Route PRN Stop Time Admin Dose Reason Admin Sodium 1,000 ml @ Q1H STAT 12/25/18 DC 12/25/18 Chloride 1,000 mls/hr IV 20:57 21:13 12/25/18 21:56 Ondansetron 4 mg ONCE STAT 12/25/18 DC 12/25/18 HCl (Zofran IV 20:57 21:12 Inj) 12/25/18 21:01 Ketorolac 30 mg ONCE STAT 12/25/18 DC 12/25/18 Tromethamine IV 20:57 21:29 (Toradol) 12/25/18 21:01 [place] [address] Radiology Main Line: [phone] DIAGNOSTIC IMAGING REPORT Patient: JASSI CROSS : 1990 Age: 28 Sex: F MR #: [id number] DOS: 12/25/182056 Ordering MD: HERBERT BRANHAM PA-C Location: [facility] Room/Bed: PROCEDURE: Right upper quadrant abdominal ultrasound. CLINICAL INDICATION: Abdominal pain TECHNIQUE: Albert scale and color doppler ultrasound images of the right upper quadrant of the abdomen. COMPARISON: US ABDOMEN 12/21/2018 FINDINGS: Pancreas: Not adequately visualized due to overlying bowel gas. Liver: Morphology:Normal in size. Contour:Normal, no evidence of nodularity. Echogenicity: Normal. Focal lesions:None. Main portal vein: Patent with hepatopetal flow. Biliary System: Gallbladder wall: Normal thickness. Gallstones: Multiple are present Intrahepatic bile ducts: Normal caliber. Common bile duct diameter (mm): 2.3 Kidneys: Right length (cm) : 10.4 Right cortical thickness: Normal. Echogenicity: Normal. Hydronephrosis: None. Renal calculi: None. Focal lesions: None. Free fluid/ascites: None. Other findings: None. IMPRESSION: Cholelithiasis without evidence of abnormal gallbladder wall thickening to suggest cholecystitis. Normal caliber of the intrahepatic and extrahepatic biliary system. RPTAT: AADD .Herbert Horton MD, MD Date Time Electronically viewed and signed by .Herbert Horton MD, MD on 12/25/2018 21:45 .B/ CC: HERBERT BRANHAM PA-C [phone] Procedures/MDM 28-year-old female presenting to the emergency department vomiting of right upper quadrant pain and vomiting which began earlier today. The patient did have tenderness to palpation of the right upper quadrant. Patient was probably moved to a gurney and IV line was established. She was administered IV fluids, IV Toradol, IV Zofran. She was significantly improved on reevaluation. CBC: no e/o of systemic infection or severe anemia CMP: no e/o severe acidosis, alkalosis, renal failure, diabetic ke toacidosis, liver disease Lipase: no e/o pancreatitis PT/INR: normal coagulation Urine: no e/o acute infection or hematuria Right upper quadrant ultrasound: IMPRESSION: Cholelithiasis without evidence of abnormal gallbladder wall thickening to suggest cholecystitis. Normal caliber of the intrahepatic and extrahepatic biliary system. RPTAT: AADD .Herbert Horton MD, MD Date Time Medical decision making: Patient symptoms likely secondary to gallstones and biliary colic. Other differential diagnosis included cholecystitis, choledocholithiasis, acute appendicitis, urinary tract infection, toxic megacolon, and others. No evidence of lengthening pathology. Patient stable for discharge and further outpatient management per the patient was in agreement with the diagnosis complaint coming for follow-up, return precautions. Patient's gastrointestinal symptoms have stabilized while in the department. No evidence of severe dehydration, sepsis, or surgical abdomen. Extensive discussion with family and patient that occult disease cannot be ruled out. 8 hour recheck for repeat abdominal exam is planned. Departure Diagnosis: Primary Impression: Abdominal pain Condition: Fair Patient Instructions: Abdominal Pain HERBERT BRANHAM PA-C Dec 25, 2018 21:05
[2018-12-25] MEDS ORDERED: HYDR-4011 PO (22:12)
[2018-12-25] MEDS ORDERED: ONDA4TAB14 PO (22:12)
[2018-12-25] MEDS ORDERED: NAPR-985 PO (22:12)
[2018-12-25 22:30] VITALS: BP 116/60; PULSE 66; RESP 16
== END 2018-12-25 22:35 | disposition home or self-care (01) ==
LOC: FTE 19:36
DX: R10.11 Right upper quadrant pain (principal); R11.10 Vomiting, unspecified
CPT/HCPCS: 36415; 76705; 80053; 81001; 81025; 83690; 85025; 85610; 85730; 96374; 96375; 99285; J1885; J2405; J7030; 81003

== ENCOUNTER 2019-03-14 23:33 | Emergency (ER) | payer OTHER ==
[~2019-03-14] VITALS: Ht 165.1 cm; Wt 65.6 kg
[~2019-03-14 23:33] MED LIST changes: +HYDR-4011 PO; +NAPR-985 PO
[2019-03-14 23:36] VITALS: Ht 165.1 cm; Wt 65.6 kg
[2019-03-15] MEDS ORDERED: KETOROLAC 30 MG INJ IM STA (00:01)
[2019-03-15] MEDS ORDERED: IBUP-1542 PO (02:10)
[2019-03-15] MEDS ORDERED: ACET-141 PO (02:10)
--- NOTE | 2019-03-15 02:11 | ERD ---
ER Documentation Chief Complaint Chief Complaint RUQ PAIN RADIATING TO BACK; HX OF GALSTONES HPI 28-year-old female with no significant past medical history presents for abdominal pain x1 day. Pain is noted to be in the right upper quadrant. Pain is rated 8 out of 10, described as a sharp pain. There is radiation to her back. She took Tylenol at home without relief. She does have history of gallstones. She did follow-up with her primary care physician in the past and was sent to the general surgeon where she is waiting for elective cholecystectomy. She denies chest pain or shortness of breath. Admits to nausea but no vomiting. Denies fevers or chills. No other modifying factors noted, no other treatments tried at home. ROS All systems reviewed and are negative except as per history of present illness. Medications Home Meds Active Scripts Ibuprofen* (Motrin*) 600 Mg Tab, 600 MG PO Q6H PRN for PAIN, #30 TAB Prov:FANNIE HUBBARD DO 03/15/19 Acetaminophen* (Acetaminophen*) 500 MG Extra Strength Tablet, 500 MG PO Q4H PRN for PAIN AND OR ELEVATED TEMP, #30 TAB Prov:FANNIE HUBBARD DO 03/15/19 Ondansetron (Ondansetron Odt) 4 Mg Tab.rapdis, 4 MG PO Q6H PRN for NAUSEA AND/OR VOMITING, #10 TAB Prov:DAVID BRANHAM PA-C 12/25/18 Hydrocodone/Acetaminophen ([place] 5-325 Tablet) 1 Each Tablet, 1 TAB PO Q6H PRN for PAIN, #7 TAB Prov:DAVID BRANHAM PA-C 12/25/18 Naproxen* (Naprosyn*) 500 Mg Tablet, 500 MG PO BID PRN for PAIN AND/OR INFLAMMATION, #30 TAB Prov:DAVID BRANHAM PA-C 12/25/18 Ondansetron (Ondansetron Odt) 4 Mg Tab.rapdis, 4 MG PO Q6H PRN for NAUSEA AND/OR VOMITING, #15 TAB Prov:FANNIE HUBBARD DO 12/21/18 Acetaminophen* (Acetaminophen*) 500 MG Extra Strength Tablet, 500 MG PO Q4H PRN for PAIN AND OR ELEVATED TEMP, #30 TAB Prov:AFNNIE HUBBARD DO 12/21/18 Ibuprofen* (Motrin*) 400 Mg Tab, 400 MG PO Q6H PRN for PAIN AND OR ELEVATED TEMP, #30 TAB Prov:FANNIE HUBBARD DO 12/21/18 Acetaminophen* (Tylophen*) 500 Mg Capsule, 1 CAP PO Q6H PRN for PAIN AND OR ELEVATED TEMP, #20 CAP Prov:PITA PLATA PA-C 08/17/18 Ondansetron (Ondansetron Odt) 4 Mg Tab.rapdis, 4 MG PO Q6H PRN for NAUSEA AND/OR VOMITING, #10 TAB Prov:PITA PLATA PA-C 08/17/18 Famotidine* (Pepcid*) 20 Mg Tablet, 20 MG PO BID for 4 Days, TAB Prov:RACHEL STAPLETON PA-C 07/27/18 Ondansetron (Ondansetron Odt) 4 Mg Tab.rapdis, 4 MG PO Q6H PRN for NAUSEA AND/OR VOMITING, #10 TAB Prov:RACHEL STAPLETON PA-C 07/27/18 Allergies Allergies: Coded Allergies: No Known Allergy (Unverified , 07/27/18) PMhx/Soc Medical and Surgical Hx: pt denies Surgical Hx History of Surgery: No Anesthesia Reaction: No Hx Neurological Disorder: No Hx Respiratory Disorders: No Hx Cardiac Disorders: No Hx Psychiatric Problems: No Hx Miscellaneous Medical Probl: Yes (gallstones) Hx Alcohol Use: No Hx Substance Use: No Hx Tobacco Use: No Smoking Status: Never smoker FmHx Family History: No coronary disease Physical Exam Vitals Vital Signs Date Temp Pulse Resp B/P (MAP) Pulse Ox O2 O2 Flow FiO2 Time Delivery Rate 03/15/19 66 16 106/50 99 Room Air 02:15 (68) 03/14/19 97.9 65 18 139/74 99 23:36 (95) Physical Exam Const: No acute distress Resp: Clear to auscultation bilaterally Cardio: Regular rate and rhythm, no murmurs Abd: Soft, non distended. Normal bowel sounds, right upper quadrant tenderness with patient, no McBurney's point tenderness, no Khoury sign, no rebound or guarding noted Skin: No petechiae or rashes Back: No midline or flank tenderness Ext: No cyanosis, or edema Neur: Awake and alert Psych: Normal Mood and Affect Result Diagram: 03/15/19 0013 03/15/19 0013 Results 24 hrs Laboratory Tests Test 03/14/19 23:45 03/14/19 23:55 03/14/19 23:56 03/15/19 00:13 Urine Color YELLOW Urine Clarity CLEAR Urine pH 7.0 Urine Specific 1.016 [place] Urine Ketones NEGATIVE mg/dL Urine Nitrite NEGATIVE mg/dL Urine Bilirubin NEGATIVE mg/dL Urine NEGATIVE mg/dL Urobilinogen Urine Leukocyte NEGATIVE Abeba/ul Esterase Urine Microscopic 3 /HPF RBC Urine Microscopic 0 /HPF WBC Urine Squamous FEW /HPF Epithelial Cells Urine Hemoglobin 3+ mg/dL Urine Glucose NEGATIVE mg/dL Urine Total NEGATIVE mg/dl Protein POC Beta HCG, NEGATIVE Qualitative Bedside Urine pH 7.0 (LAB) Bedside Urine Negative Protein (LAB) Bedside Urine Negative Glucose (UA) Bedside Urine Negative Ketones (LAB) Bedside Urine 3+ Blood Bedside Urine Negative Nitrite (LAB) Bedside Urine Negative Leukocyte Esteras e (L White Blood Count 7.6 10^3/ul Red Blood Count 4.41 10^6/ul Hemoglobin 13.0 g/dl Hematocrit 40.4 % Mean Corpuscular 91.6 fl Volume Mean Corpuscular 29.5 pg Hemoglobin Mean Corpuscular 32.2 g/dl Hemoglobin Concen t Red Cell 11.9 % Distribution Width Platelet Count 244 10^3/UL Mean Platelet 11.1 fl Volume Immature 0.300 % Granulocytes % Neutrophils % 54.8 % Lymphocytes % 38.2 % Monocytes % 4.2 % Eosinophils % 2.0 % Basophils % 0.5 % Nucleated Red 0.0 /100WBC Blood Cells % Immature 0.020 10^3/ul Granulocytes # Neutrophils # 4.2 10^3/ul Lymphocytes # 2.9 10^3/ul Monocytes # 0.3 10^3/ul Eosinophils # 0.2 10^3/ul Basophils # 0.0 10^3/ul Nucleated Red 0.0 10^3/ul Blood Cells # Sodium Level 144 mmol/L Potassium Level 3.8 mmol/L Chloride Level 106 mmol/L Carbon Dioxide 30 mmol/L Level Anion Gap 8 Blood Urea 11 mg/dl Nitrogen Creatinine 0.71 mg/dl Est Glomerular > 60 mL/min Filtrat Rate mL/min Glucose Level 102 mg/dl Calcium Level 9.6 mg/dl Total Bilirubin 0.3 mg/dl Direct Bilirubin 0.00 mg/dl Indirect 0.3 mg/dl Bilirubin Aspartate Amino 15 IU/L Transf (AST/SGOT) Alanine 15 IU/L Aminotransferase (ALT/SGPT) Alkaline 42 IU/L Phosphatase Total Protein 7.8 g/dl Albumin 4.7 g/dl Globulin 3.10 g/dl Albumin/Globulin 1.51 Ratio Lipase 59 U/L Current Medications Medications Dose Sig/Mattie Start Time Status Last (Trade) Ordered Route PRN Stop Time Admin Dose Reason Admin Ketorolac 30 mg ONCE STAT 03/15/19 DC 03/15/19 Tromethamine IM 00:01 00:11 (Toradol) 03/15/19 00:03 Procedures/MDM Medical Decision Making: Differential diagnosis includes but not limited to acute gastritis, acute g astroenteritis, appendicitis, cholecystitis, pancreatitis, nephrolithiasis, pyelonephritis Patient appeared well on physical exam. Nontoxic appearing. ED course: Patient was given Toradol. Symptoms improved with treatment. Labs: CBC showed no severe anemia, no elevated WBC to suggest infection CMP showed no electrolyte abnormalities, there was normal kidney and liver function Lipase was normal Urine was negative UA was negative for infection Imaging: Gallbladder ultrasound showed cholelithiasis without cholecystitis. Patient likely has biliary colic Patient's abdominal symptoms have stabilized while in the department. No evidence of severe dehydration, sepsis, or surgical abdomen Prescription(s): Patient given prescription for supportive medications . Advised to continue to follow with her general surgeon. Patient advised to follow up with PCP in 1-2 days. Patient advised to return to ED for new or worsening symptoms. Patient stable on discharge from the ED. Disclaimer: Inadvertent spelling and grammatical errors are likely due to EHR/dictation software use and do not reflect on the overall quality of patient care. Also, please note that the electronic time recorded on this note does not necessarily reflect the actual time of the patient encounter. Departure Diagnosis: Primary Impression: Biliary colic Condition: Fair Patient Instructions: Biliary Colic With Gallstone (Confirmed) Referrals: COMMUNITY CLINICS YOU HAVE RECEIVED A MEDICAL SCREENING EXAM AND THE RESULTS INDICATE THAT YOU DO NOT HAVE A CONDITION THAT REQUIRES URGENT TREATMENT IN THE EMERGENCY DEPARTMENT. FURTHER EVALUATION AND TREATMENT OF YOUR CONDITION CAN WAIT UNTIL YOU ARE SEEN IN YOUR DOCTORS OFFICE WITHIN THE NEXT 1-2 DAYS. IT IS YOUR RESPONSIBILITY TO MAKE AN APPOINTMENT FOR FOLOW-UP CARE. IF YOU HAVE A PRIMARY DOCTOR --you should call your primary doctor and schedule an appointment IF YOU DO NOT HAVE A PRIMARY DOCTOR YOU CAN CALL OUR PHYSICIAN REFERRAL HOTLINE AT IF YOU CAN NOT AFFORD TO SEE A PHYSICIAN YOU CAN CHOSE FROM THE FOLLOWING [facility] [address] [facility] [address] [facility] [facility] [address] [facility] [address] [facility] [facility] [address] [facility] [facility]. [address] Additional Instructions: Call your primary care doctor TOMORROW for an appointment during the next 1-2 days.See the doctor sooner or return here if your condition worsens before your appointment time. Follow up with general surgery FANNIE HUBBARD DO Mar 15, 2019 02:11
[2019-03-15 02:15] VITALS: BP 106/50; PULSE 66; RESP 16
== END 2019-03-15 02:17 | disposition home or self-care (01) ==
LOC: FTE 23:33
DX: K80.50 Calculus of bile duct without cholangitis or cholecystitis without obstruction (principal)
CPT/HCPCS: 36415; 76705; 80053; 81001; 81003; 81025; 83690; 85025; 96372; 99285; J1885

== ENCOUNTER 2019-04-29 21:08 | Emergency (ER) | payer SELFPAY ==
[~2019-04-29] VITALS: Ht 167.6 cm; Wt 63.8 kg
[~2019-04-29 21:08] MED LIST changes: +IBUP-1542 PO
[2019-04-29 21:16] VITALS: BP 127/68; PULSE 89; RESP 20; Ht 167.6 cm; Wt 63.8 kg
== END 2019-04-30 01:00 | disposition left against medical advice (07) ==
LOC: FTE 21:08
DX: Z53.21 Procedure and treatment not carried out due to patient leaving prior to being seen by health care provider (principal)